=== PATIENT | male | born 1960 | race African-American/Black ===

== ENCOUNTER 2016-07-17 11:18 | Emergency (ER) | payer MEDICAID ==
[~2016-07-17 11:18] MED LIST: CYCLOBENZAPRINE10 M1 PO; NO HOME MEDS; NORCO 5-325 TA1 EACH PO; PREDNISONE20 M1 PO
[2016-07-17] MEDS ORDERED: CYCLOBENZAPRINE5 M1 PO (13:16)
[2016-07-17] MEDS ORDERED: NORCO 5-325 TA1 EACH PO (13:16)
== END 2016-07-17 13:29 ==
LOC: EDMED 11:18
DX: M54.12 Radiculopathy, cervical region (principal); F17.200 Nicotine dependence, unspecified, uncomplicated